=== PATIENT | male | born 1965 | race Caucasian/White ===

== ENCOUNTER 2022-07-31 13:39 | Emergency (ER) | payer OTHER, BC, SELFPAY ==
[2022-07-31 14:12] VITALS: BP 128/83; PULSE 64; RESP 16; TEMP 36.6; O2SAT 97; BMI 23.2
--- NOTE | 2022-07-31 16:22 | CRLHL7_ITS ---
For Patients: As a result of the Cures Act, medical imaging exams and procedure reports are released immediately into your electronic medical record. You may view this report before your referring provider. If you have questions, please contact your health care provider. INDICATION: Trauma on Sunday. Decreased range of motion. TECHNIQUE: Three views of the right thumb. FINDINGS: Acute complete transversely oriented nondisplaced fracture proximal aspect distal phalanx right thumb with associated soft tissue swelling. No dislocation. IMPRESSION: Transversely oriented non distracted fracture proximal aspect distal phalanx right thumb. Dictated by Jagjit Marks MD @ 07/31/2022 4:59:00 PM (Electronically Signed)
--- NOTE | 2022-07-31 16:35 | ED_ITS ---
HPI - Extremity Injury (Upper) General Chief Complaint: Extremity Pain/Injury, Upper Stated Complaint: Jammed thumb last week Time Seen by Provider: 07/31/22 16:26 History of Present Illness HPI narrative: This 57-year-old male comes in with an injury to his right thumb that occurred last week at work. He states that he jammed it at work and was expecting it to improve over time. It is now been a week and he yet has swelling with some erythema and associated decreased range of motion of the distal joint of his right thumb. Related Data Home Medications Medication Instructions Recorded Confirmed sertraline 50 mg tablet 50 mg PO 03/01/22 03/01/22 Previous Rx's Medication Instructions Recorded amoxicillin 875 mg-potassium 1 tab PO Q12H #14 tabs 03/01/22 clavulanate 125 mg tablet Allergies Allergy/AdvReac Type Severity Reaction Status Date / Time aspirin Allergy Mild Face Verified 07/31/22 14:15 swelling Review of Systems Status of ROS: Reports: 10 or more systems reviewed and unremarkable except as noted in History and below Narrative: Constitutional: No fevers, no weight gain or loss. Eyes: No discharge. No vision changes. HENT: No congestion, no sore throat, no ear pain. Cardiovascular: No chest pain, no palpitations. Respiratory: No shortness of breath, no wheezes, no cough. Gastrointestinal: No abdominal pain, no vomiting, no diarrhea. Genitourinary: No dysuria, no hematuria. Musculoskeletal: Right thumb injury as described above. Skin: No rashes, no pruritis. Neurological: No dizziness, weakness, sensory change, speech change. Endo/Heme/Allergies: No bruising or bleeding. No polydipsia. Pysch: no suicidality, no anxiety, no insomnia. All other systems reviewed and are negative. PFSH PFS Social History Smoking Status: Never smoker Exam Narrative: Exam Narrative: Constitutional: Well-developed, well-nourished, no acute distress. HEENT: Normocephalic, atraumatic. Neck: Normal range of motion. Nontender. Supple. Heart: Intact distal pulses. Lungs: No chest discomfort. No wheezes, rhonchi, or rales. Abdomen: Nontender. Back: Normal range of motion. Extremities: The distal portion of the right thumb has swelling with some mild erythema. There is no skin injury or subungual hematoma. Range of motion at this joint is decreased. Skin: Intact. No rash. Warm. No erythema or pallor. Neurologic: No altered sensation. No weakness. Alert and oriented. Psychiatric: No suicidality. No anxiety or depression. No insomnia. Nursing notes and vitals signs are reviewed. Const: Vital Signs, click to edit/add: Vital Signs - 24 hr 07/31/22 14:12 Temperature 97.9 F Pulse Rate [Right Pulse Oximeter] 64 Respiratory Rate 16 Blood Pressure [Ri ght Upper Arm] 128/83 Pulse Oximetry 97 Oxygen Delivery Me thod Room Air Course Vital Signs Vital signs: Initial Vital Signs Temperature 97.9 F 07/31/22 14:12 Temperature Source Temporal Artery Scan 07/31/22 14:12 Pulse Rate 64 07/31/22 14:12 Pulse Rhythm Regular 07/31/22 14:12 Pulse Strength 3+ Normal 07/31/22 14:12 Respiratory Rate 16 07/31/22 14:12 Blood Pressure 128/83 07/31/22 14:12 Blood Pressure Mean 98 07/31/22 14:12 Blood Pressure Position Sitting 07/31/22 14:12 Pulse Oximetry 97 07/31/22 14:12 Oxygen Delivery Method Room Air 07/31/22 14:12 Vital Signs Temperature 97.9 F 07/31/22 14:12 Pulse Rate 64 07/31/22 14:12 Respiratory Rate 16 07/31/22 14:12 Blood Pressure 128/83 07/31/22 14:12 Pulse Oximetry 97 07/31/22 14:12 Oxygen Delivery Method Room Air 07/31/22 14:12 Temperature 97.9 F 07/31/22 14:12 Pulse Rate 64 07/31/22 14:12 Respiratory Rate 16 07/31/22 14:12 Blood Pressure 128/83 07/31/22 14:12 Pulse Oximetry 97 07/31/22 14:12 Oxygen Delivery Method Room Air 07/31/22 14:12 MDM - Extremity Injury (Upper) MDM Narrative Medical decision making narrative: This patient comes in because of persistent pain and swelling in his right thumb from an injury that occurred about a week ago at work. X-ray imaging shows a fracture of the distal portion of the thumb. This explains his persistent discomfort. The patient did receive a splint for his thumb and instructions were given regarding protecting this wound to allow to heal. Discharge Plan Discharge Clinical Impression: Fracture of thumb Patient Disposition: Home, Self-Care Condition: Unchanged Additional Instructions: Wear splint on the right thumb to protect for further injury. Increase activity as tolerated. Follow up with MD or return if worsening. Prescriptions: No Action sertraline 50 mg tablet 50 mg PO Patient Comments: Take 1 Tablet (50 mg) by mouth once daily. amoxicillin-pot clavulanate 875-125 mg tablet 1 tab PO Q12H Qty: 14 0RF Follow Up/Referrals: Provider,Not a Local [Referring] - Stand Alone Forms: [employer] Info Instructions
--- OUTSIDE RECORDS SUMMARY | 2022-08-02 07:17 | XMS_ITS | Continuity of Care Document ---
Author Name Unknown Organization [facility] Address [address] [address] [place] [address] Phone Care Team Providers Care Harbour Master Name Role Phone Bryan Kaiser DO Unavailable Unavailable Allergies, Adverse Reactions, Alerts Substance Reaction Status Criticality aspirin Active No Information Medications Medication Instructions Dosage Effective Dates (start - stop) Status Comments Flonase 50 mcg/actuation nasal spray,suspension inhale 2 spray by intranasal route every day in each nostril 100 MCG - Active MiralaxBisacodylMagCit Colon Prep Use as directed - No Longer Active Procedures Procedure Date Colonoscopy Flex; W/remov Les- 16 Colonoscopy Flex; W/bx 1/mx Level Iv-surg Path Gross/micro 16 Stool Kits Given Offic/outpt E&m New Mod-hi Routine Serum Collection Stool Kits Given C-reactive Prot C. Difficile Toxin Gene, ORLIN Advance Directives Directive Yes / No Effective Date File Name No Information Encounters Encounter Description Practice Location Reason(s) For Visit Diagnoses Date Provider Providers Copied on Encounter [facility], [address] [address], [place], [id number], [place] tel:[phone] [facility] Colon polypDiverticu losis of large intestine without hemorrhageDiar mercedes, unspecified typeBenign neoplasm of ascending colonAbnormal weight lossDvrtclos of lg int w/o perforation or abscess w/o bleeding 1 6 Job [address]roczo. [address] [facility], [place], [place], [id number], [place]. tel:[phone] Referring Provider: Referral Self. [facility], [address] [address], [place], [place], [id number], tel:[phone] [facility] Diarrhea, unspecified No Information Referring Provider: Referral Self. Offic/outpt E&m New Mod-hi [facility], [address] [address], [place], [place], [id number], tel:[phone] [facility] GI Symptoms or Concerns (chief complaint) Diarrhea, unspecified No Information Referring Provider: Referral Self. Family History Family Member Type Diagnosis Age At Onset Brother Problem (finding) alcoholism Mother Problem (finding) Alive and well Father Problem (finding) Alive and well Payers Payer name Insurance type Covered republican ID Azalea griffin(s) [facility] [employer] [id number] Social History Type Description Quantity Date Captured Comments Alcohol Use Details Unknown Caffeine Use Details Unknown Tobacco Use Status No Information Smoking Status Never smoker Sex Male Vital Signs Date / Time: Height Weight BMI Pulse Rate Blood Pressure Temperature Respiratory Rate Body Surface Area Head Circumference Head Circ. Percentile Wt./Alberto. Percentile BMI percentile Pulse Ox Inhaled Ox 63.00 in 52.150 kg (115.00 lbs) 20.4 0 kg/m eter (2) 62 /min 118/76 mm[Hg] 0.00 F 16 /min 98 % Chief Complaint And Reason For Visit No Information Reason For Referral Reason For Referral No Information Plan Of Treatment Date Type Action Status Referral Ordered: follow-up visit with Favio Borja MD 2-4 wks ordered History Of Present Illness Encounter Date Complaint History Of Prese nt Illness GI Symptoms or Concerns This pat ient is a 50-year-old male seen today because of diarrhea. He was accompanied by his who provided some of the history. Information also was obtained from outside records.The patient's problem began on August 24, 2015. Previously, he always experienced regular bowel habits with two formed stools daily. Starting on August 23, however, he had the onset of diarrhea along with headache and malaise. Initially, the patient was up all night passing multiple watery stools. There was no blood in the stool or melena. Patient did not have any fever. First night, however, he felt somewhat chilled, but did not have any rigors. There was no accompanying abdominal pain, nausea, or vomiting. The patient started himself on Pepto-Bismol which did reduce the stool frequency somewhat and caused the stools to become black, but not tarry. Patient had a decrease in his appetite. Prior to that, the patient had traveled to [place] over the August 15 holiday for a family reunion. In Functional Status Date Functional Assessmen t No Information Instructions Date Instruction Additional Infor mation Colon Cancer Prevention Related to Diverticulosis of large intestine without hemorrhage Colon Polyps Related to Diver ticulosis of large intestine without hemorrhage Diverticulosis/Diverticulitis Re lated to Diverticulosis of large intestine without hemorrhage High Fiber Diet Related to Diver ticulosis of large intestine without hemorrhage Hemorrhoids Related to Diver ticulosis of large intestine without hemorrhage 1. Laboratory - C. r eactive protein and thyroid cascade.2. Stool for Clostridium difficile, qualitative fat, and white blood cells.3. Patient will be scheduled for colonoscopy which hopefully will include visualization of the ileum plus biopsies. I reviewed the procedure with the patient and his . Patient understands and consents.4. For further comment and recommendations to follow up.5. Patient asked about the use of Imodium. He had discussed this previously with his primary care physician. I told the patient it would be appropriate to use this if he needs this to function at his place of employment. Related to Diarrhea, unspecified Diarrhea Related to Diarr hea, unspecified Assessments Type Assessment Date assessment Colon polyp assessment Diverticulosis of large intestin e without hemorrhage assessment Diarrhea, unspecified type Patient Care Teams Name Effective Dates (start - stop) Status Members No Information
== END 2022-07-31 19:36 | disposition home or self-care (01) ==
PROVIDERS: Emergency Provider Emergency Medicine Emergency Medical Services; PCP Family Medicine
DX: S62.524A Nondisplaced fracture of distal phalanx of right thumb, initial encounter for closed fracture (principal); W23.0XXA Caught, crushed, jammed, or pinched between moving objects, initial encounter
CPT/HCPCS: 29130; 73140; 99283; 99284